=== PATIENT | female | born 1985 | race Caucasian/White ===

== ENCOUNTER 2018-09-05 16:26 | Emergency (ER) | payer SELFPAY ==
[~2018-09-05] VITALS: Ht 170.2 cm; Wt 90.0 kg
[2018-09-05 16:33] VITALS: Ht 170.2 cm; Wt 90.0 kg
[2018-09-05] MEDS ORDERED: FAMOTIDINE 20 MG INJ IV STA (16:45)
[2018-09-05] MEDS ORDERED: morphine 4 MG/ML VIAL IV STA (16:45)
[2018-09-05] MEDS ORDERED: ONDANSETRON 4 MG INJ IV STA (16:45)
[2018-09-05] MEDS ORDERED: SOD CHLORIDE 0.9% 1,000 ML IV STA (16:45)
--- NOTE | 2018-09-05 16:45 | ERD ---
ER Documentation Chief Complaint Chief Complaint AP WITH NAUSEA X2 DAYS HPI This is a 32-year-old female who is visiting from [place] and indicates that for the past 48 hours she has been experiencing mild abdominal cramping. She indicates that the abdominal cramping was more in the epigastric region. She stated the pain did not radiate to the back. She is felt nauseous and has none 2 episodes of nonbloody nonbilious emesis in the past 24 hours. She has no frequency urgency or dysuria. She states she did not take any analgesic med occasion prior to arrival. She is never had any similar pain in the past. She is no past medical history. She denies any frequency urgency or dysuria. No chest pain or pressure. No shortness of breath. ROS All systems reviewed and are negative except as per history of present illness. Allergies Allergies: Coded Allergies: Penicillins (Verified Allergy, Unknown, 09/05/18) amoxicillin (Verified Allergy, Unknown, 09/05/18) ranitidine (Verified Allergy, Unknown, 09/05/18) tramadol (Verified Allergy, Unknown, 09/05/18) Physical Exam Vitals Vital Signs Date Temp Pulse Resp B/P (MAP) Pulse Ox O2 O2 Flow FiO2 Time Delivery Rate 09/05/18 97.3 87 20 133/88 100 16:33 (103) Physical Exam Constitutional:Well-developed. Well-nourished. HEENT:Normocephalic. Atraumatic.Pupils were equal round reactive to light. Dry mucous membranes.No tonsillar exudates. Respiratory: Not using accessory muscles of respiration.Lungs were clear to auscultation bilaterally. No rhonchi. No rales. No wheezing. Cardiovascular: Regular rate regular rhythm.No murmurs. No rubs were appreciated.S1, S2 normal. Distal pulses are palpable 2+ bilaterally. GI: Abdomen was soft. Nontender. Non Distended. No pulsatile abdominal masses or bruits. No rebound. Bowel sounds were normal. No tenderness in the right lower quadrant over McBurney's point. Psoas sign negative. Obturator sign negative. Skin: No petechia, no purpura. No lesions on the palms or the soles of the feet. No maculopapular rash. NEURO: Patient was alert, awake, orientated x3.speech regular rate and reticulation. Gait observed and normal. Result Diagram: 7/1/19 1732 Results 24 hrs Laboratory Tests Test 09/05/18 17:32 White Blood Count 11.4 10^3/ul Red Blood Count 4.97 10^6/ul Hemoglobin 14.8 g/dl Hematocrit 43.5 % Mean Corpuscular Volume 87.5 fl Mean Corpuscular Hemoglobin 29.8 pg Mean Corpuscular Hemoglobin Concent 34.0 g/dl Red Cell Distribution Width 13.1 % Platelet Count 326 10^3/UL Mean Platelet Volume 9.3 fl Immature Granulocytes % 0.400 % Neutrophils % 75.1 % Lymphocytes % 15.2 % Monocytes % 7.8 % Eosinophils % 1.1 % Basophils % 0.4 % Nucleated Red Blood Cells % 0.0 /100WBC Immature Granulocytes # 0.050 10^3/ul Neutrophils # 8.6 10^3/ul Lymphocytes # 1.7 10^3/ul Monocytes # 0.9 10^3/ul Eosinophils # 0.1 10^3/ul Basophils # 0.1 10^3/ul Nucleated Red Blood Cells # 0.0 10^3/ul Current Medications Medications Dose Sig/Debra Start Time Status Last (Trade) Ordered Route PRN Stop Time Admin Dose Reason Admin Sodium 1,000 ml @ Q1H STAT 09/05/18 DC 09/05/18 Chloride 1,000 mls/hr IV 16:45 09/05/18 17:36 17:44 Morphine 4 mg ONCE STAT 09/05/18 Cancel Sulfate IV 16:45 09/05/18 (morphine) 16:46 Ondansetron 4 mg ONCE STAT 09/05/18 DC 09/05/18 HCl (Zofran IV 16:45 09/05/18 17:43 Inj) 17:35 Famotidine 20 mg ONCE STAT 09/05/18 UNV (Pepcid Iv) IV 16:45 09/05/18 16:46 Procedures/MDM This patient presented to the emergency department with abdominal pain and was seen and evaluated by myself. My differential diagnosis included but was not limited to abdominal aortic aneurysm, appendicitis, pancreatitis, perforated peptic ulcer, perforated viscus, Boerhaaves syndrome or visceral pain such as diverticulitis, DKA, esophagitis, hepatitis or bowel obstruction. The patient was placed on a cardiac monitor technician, continuous pulse oximetry, and IV access was established by nursing staff. I did not appreciate any abdominal tenderness on physical exam. She had no peritoneal signs. I did feel her symptoms could be a result of dehydration and likely viral etiology from the emesis. The patient received intravenous fluids and Zofran. She stated her symptoms had completely resolved. She felt comfortable being discharged home. There were no severe electrolyte abnormalities The patient was discharged home in fair condition. They were instructed to return to the emergency department at any time if there was any worsening of their condition. The patient stated they would follow up with their PCP in the next 24-48 hours to initiate a suitable medication regimen under the care of their PCP as well as to allow their PCP to monitor any drug reactions. The patient was discharged home with prescriptions after they gave informed consent to the new medication. They were also fully informed by myself on the adverse effects and adverse drug interactions in order to provide adequate safeguards to prevent possible adverse reactions to medications. Departure Diagnosis: Primary Impression: Vomiting Vomiting type: unspecified Vomiting Intractability: non-intractable Nausea presence: with nausea Qualified Codes: R11.2 - Nausea with vomiting, unspecified Additional Impression: Dehydration Condition: Fair KRISTIE FLOYD MD Sep 05, 2018 16:45
[2018-09-05 19:00] VITALS: BP 122/76; PULSE 63; RESP 18
== END 2018-09-05 19:00 | disposition home or self-care (01) ==
LOC: E/R 16:26
DX: E86.0 Dehydration (principal); R40.2142 Coma scale, eyes open, spontaneous, at arrival to emergency department; R40.2362 Coma scale, best motor response, obeys commands, at arrival to emergency department; R40.2252 Coma scale, best verbal response, oriented, at arrival to emergency department
CPT/HCPCS: 80053; 82150; 83690; 84703; 85025; 85610; 85730; 96374; 99285; J2405; J7030